=== PATIENT | female | born 1945 | race Caucasian/White ===

== ENCOUNTER 2024-11-28 08:42 | Emergency (ER) | payer MEDICARE, OTHER ==
[~2024-11-28] VITALS: Ht 162.6 cm; Wt 65.0 kg
[~2024-11-28 08:42] MED LIST: ASPI-1265 PO; ATOR20TA PO; ESTR1PAT; SYN0.025T PO
[2024-11-28 08:51] VITALS: TEMP 98.6
[2024-11-28] MEDS ORDERED: AZIT250T83 PO (11:46)
[2024-11-28] MEDS ORDERED: ALBU8HFA INH (11:46)
[2024-11-28] MEDS ORDERED: PRED50TA PO (11:46)
[2024-11-28 11:54] VITALS: BP 126/78; PULSE 86; RESP 16; O2SAT 98
== END 2024-11-28 11:56 | disposition home or self-care (01) ==
LOC: ER 08:42
DX: J06.9 Acute upper respiratory infection, unspecified (principal); I48.91 Unspecified atrial fibrillation; E78.00 Pure hypercholesterolemia, unspecified; Z88.0 Allergy status to penicillin; Z88.2 Allergy status to sulfonamides; Z79.82 Long term (current) use of aspirin
CPT/HCPCS: 71045; 99283